=== PATIENT | female | born 1990 | race Caucasian/White ===

== ENCOUNTER → 2018-12-12 | Emergency (ER) | payer OTHER ==
[~2018-12-12] VITALS: Ht 160 cm; Wt 59.0 kg
[~2018-12-12] MED LIST: NAPR500T14 PO; NORFLEX100MG PO
== END | disposition home or self-care (01) ==
LOC: ER 01:36
DX: S29.011A Strain of muscle and tendon of front wall of thorax, initial encounter (principal); X58.XXXA Exposure to other specified factors, initial encounter; Y93.B9 Activity, other involving muscle strengthening exercises; Y92.89 Other specified places as the place of occurrence of the external cause; Y99.8 Other external cause status; R11.11 Vomiting without nausea